=== PATIENT | female | born 1980 | race Caucasian/White ===

== ENCOUNTER 2017-02-15 18:55 | Emergency (ER) | payer BC ==
--- NOTE | 2017-02-23 14:40 | ER ---
ADMIT: 02/15/2017 RM/LOC: ER [facility] MR#: [id number] [address] [id number] SERENE GRAVES [address] [place] [address] Emergency Room Report SEX: F AGE: 36 : 1980 DATE: 02/15/2017 ADDENDUM: This patient comes to the ER because she is having a severe sore throat. She was started on Zithromax, is not getting any better. She is taking Tylenol. She was given [place]. Her mono screen was negative. After the [place], she felt better. We will have her push fluids. Continue with the Zithromax. Follow up with her primary as needed. Please see my T-sheet. MADIHA Bruce / Junior Singh MD / refugio JOB #: [id number] CC: Martin Olivares MD, Attending Physician Jamila Gaspar MD, Family Physician
== END 2017-02-15 20:51 | disposition home or self-care (01) ==
LOC: ER 18:55
DX: J02.9 Acute pharyngitis, unspecified (principal); Z98.890 Other specified postprocedural states; Z88.0 Allergy status to penicillin; Z88.2 Allergy status to sulfonamides